=== PATIENT | male | born 1995 | race Asian ===

== ENCOUNTER 2025-04-20 12:47 | Outpatient (AMB) | payer OTHER, SELFPAY ==
--- NOTE | 2025-04-20 12:52 | A.OFFPC_ITS ---
Vital Signs 04/20/25 13:04 Height 5 ft 6 in Weight 142 lb BMI 22.9 BP 120/78 Blood Pressure Location Lt brachial Position Sitting Respiration 18 Pulse 91 Pulse Source Pulse Oximeter Temp 98 F Temp Source Oral Pulse Oximetry (%) 99 Oxygen Delivery Method Room Air Intake Visit Reasons: established care Intake Note: Patient here to [facility] and has been getting GERD Allergies No Known Allergies Allergy (Verified 04/20/25 13:04) Medication List - Last Reconciled 04/20/25 by Ravi Smith MD omeprazole 20 mg PO BID Tobacco use date assessed: 04/20/25 Dental Screening Dental Screen Date: 04/20/25 Did you have a dental visit in the last 12 months?: Yes Did you have a dental problem in the last 6 months where you did not have access to dental care?: No Was dental information given to patient?: Patient has dentist HPI HPI Comments History of Present Illness Details History of Present Illness The patient is a 29 year old male presenting to [facility] and for evaluation of gastroesophageal reflux disease. Gastroesophageal Reflux Disease: The patient reports a recent onset of gastroesophageal reflux disease (GERD) symptoms, which he believes were triggered by daily consumption of cold brew coffee. He has been self-treating with codd-vra-gynylat omeprazole 20 mg, which has provided some relief. He notes his symptoms, which previously included a burning sensation in his chest in the morning, have been slowly improving since he stopped drinking coffee, and he now only experiences symptoms after eating. Cerumen Impaction: The patient reports a history of seborrheic dermatitis, for which he previously used topical steroid creams. He denies any noticeable symptoms related to his ears but overproduction of cerumen is noted on exam. Health Maintenance: The patient has a history of vitamin D deficiency years ago, for which he took pills but was never rechecked. He reports feeling tired despite getting sleep. Surgical History: - No surgical history reported. Medications: - Omeprazole 20 mg hunm-fud-gcyuagj for GERD. Social History: - Substance Use: Denies smoking and illi cit drug use. - Nutritional Intake: Previously drank c old brew coffee daily but has stopped. Family History: - Mother: Has a history of supraventricu lar tachycardia (SVT) treated with an ablation, and Graves' disease. - Father: Has a history of cardiac issue s, diabetes, and was recently diagnosed with rectal cancer at age 61, for which he had surgery. - Sisters: One sister has multiple scler osis and another has rheumatoid arthritis. Past Medical History - Gastroesophageal reflux disease, recen t onset. - Vitamin D deficiency, history of, stat us post-treatment. - Seborrheic dermatitis, history of. - Hospitalizations: Denies prior hospita lizations. Health Maintenance - Ordered comprehensive baseline labs: C BC, CMP, HbA1c, hepatitis B virus, hepatitis C virus, HIV, lipid panel, magnesium, syphilis screen, TSH, UA, vitamin B12, folate, and vitamin D. - Plan to address any lab abnormalities upon review. - The patient does not need to schedule a follow-up appointment specifically for lab results. [facility] Medical History (Updated 04/20/25 @ 18:48 by Ravi Smith MD) Cerumen impaction GERD (gastroesophageal reflux disease) Vitamin D deficiency Surgical History (Updated 04/20/25 @ 13:06 by Levi Witt CMA) [place] teeth extracted Social History (Updated 04/20/25 @ 13:07 by Levi Witt CMA) Housing: Apartment Alcohol intake: never Patient Tobacco Use Status: Never used Tobacco e-Cigarette/Vaping Use: Never Used Second Hand Smoke Exposure: No Use of substances other than those prescribed or required for medical reasons: No service: No Current occupational status: employed Cognitive needs: No Hearing needs: No Vision needs: No Questionnaire PHQ-9 Over the last 2 weeks, how often have you been bothered by any of the following problems? 1. Little interest or pleasure in doing things: not at all 2. Feeling down, depressed, or hopeless: not at all 3. Trouble falling or staying asleep, or sleeping too much: not at all 4. Feeling tired or having little energy: not at all 5. Poor appetite or overeating: not at all 6. Feeling bad about yourself - or that you are a failure or have let yourself or your family down: not at all 7. Trouble concentrating on things, such as reading the newspaper or watching television: not at all 8. Moving or speaking so slowly that other people could have noticed. Or the opposite - being so fidgety or restless that you have been moving around a lot more than usual: not at all 9. Thoughts that you would be better off or of hurting yourself in some way: not at all Total score: 0 Depression Screening Interpretation: Negative Depression Screening Done: Yes 96945 - PHQ-9 Billing: Yes Source: Developed by Drs. Simone Phillips, Clara Elizabeth, Grant Michael and colleagues, with an educational joya from [employer]. Thrive Questionnaire Date Thrive assessed: 04/20/25 I am a: Patient What is your living situation today?: I have a steady place to live Within the past 12 months, did the food you bought not last and you didn't have the money to get more?: Never true Within the past 12 months, did you worry whether your food would run out before you got money to buy more?: Never true Do you have trouble paying for medicines?: No Do you have trouble getting transportation to medical appointments?: No Do you have trouble paying your heating and electricity bill?: No Do you have trouble taking care of your child, family member or friend?: No Do you have trouble with day-to-day activities such as bathing, preparing meals, shopping, managing finances, etc.?: No Are you currently unemployed and looking for a job?: No Are you interested in more education?: No Please select the resources that you would like help with: None Currently or been in a relationship where the following occur: No concerns reported THRIVE Score: 0 AUDIT C Alcohol Use Questionnaire (AUDIT-C) 1. How often do you have a drink containing alcohol?: Never Total Score: 0 CLAIRE-7 AMB Questionnaire CLAIRE-7 Date CLAIRE - 7 assessed: 04/20/25 Feeling nervous, anxious, or on edge: 0 = Not at all Not being able to stop or control worryin = Not at all Worrying too much about different things: 0 = Not at all Trouble relaxin = Not at all Being so restless that it is hard to sit still: 0 = Not at all Becoming easily annoyed or irritable: 0 = Not at all Feeling afraid as if something awful might happen: 0 = Not at all Total CLAIRE-7 score (0-4 normal; 5-9 mild; 10-14 moderate; 15-21 severe): 0 Source: Developed by Clara Wolf Glenn, Grant Michael and colleagues, with an educational joya from [employer]. CLAIRE-7 Assessment Billing CLAIRE-7 Assessment Tool: CLAIRE-7 Assessment 27620 Review of Systems Narrative Review of Systems - Constitutional: Reports fatigue and not feeling refreshed after sleep. - Gastrointestinal: Reports postprandial GERD symptoms; denies morning chest burning. - Allergies: Denies any known allergies. 10-point ROS reviewed and negative except as noted in HPI Physical exam (Primary Care) Vital Signs: Last Vital Signs Temp 98 F 04/20/25 13:04 Pulse 91 04/20/25 13:04 Resp 18 04/20/25 13:04 BP 120/78 04/20/25 13:04 Pulse Ox 99 04/20/25 13:04 Oxygen Delivery Method Room Air 04/20/25 13:04 BMI result Body Mass Index 22.9 Tobacco/Smoking Status: Tobacco use Status Tobacco use date assessed 04/20/25 04/20/25 13:11 Patient Tobacco Use Status Never used Tobacco 04/20/25 13:11 e-Cigarette/Vaping Use Never Used 04/20/25 13:11 PHQ-9: PHQ-9 Score PHQ-9: Total score 0 04/20/25 13:11 Depression Screening Interpretation: Negative Thrive Assessment: Date of Thrive Assessment Date Thrive assessed 04/20/25 04/20/25 13:11 Currently or been in a relationship where the following occur: No concerns reported Narrative Physical Exam General: Well-appearing, in no acute distress. Vital signs: Within normal limits. HEENT: Normocephalic, atraumatic. PERRLA, EOMI. Conjunctiva clear, sclera anicteric. Oropharynx clear, mucous membranes moist. TMs intact bilaterally. Neck: Supple, no lymphadenopathy, no thyromegaly, no JVD or carotid bruits. Cardiovascular: RRR, normal S1/S2, no murmurs, rubs, or gallops. Peripheral pulses 2+ and symmetric. No edema. Respiratory: Lungs clear to auscultation bilaterally, no wheezes, rales, or rhonchi. Normal effort. Abdomen: Soft, non-tender, non-distended. Normoactive bowel sounds. No hepatosplenomegaly, no masses. MSK: Full range of motion, no joint swelling or deformity. Normal gait. Skin: Warm, dry, intact. No rashes, lesions, or pallor. Dry skin noted on lower legs. Neuro: Alert and oriented x3. Cranial nerves II-XII intact. Strength 5/5 throughout. Sensation intact. Reflexes 2+ symmetric. Normal coordination and gait. Psych: Appropriate mood and affect. Normal judgment and insight. Coding Level of Care Code New Pt Level 4 (63113) Diagnoses GERD (gastroesophageal reflux disease) K21.9 Cerumen impaction H61.20 Additional Codes CLAIRE-7 Assessment Billing - CLAIRE-7 Assessment Tool: CLAIRE-7 Assessment 31121 ([id number]) PHQ-9 - 95030 - PHQ-9 Billing: Yes ([id number]) Assessment & Plan Assessment & Plan (1) GERD (gastroesophageal reflux disease): Code(s): K21.9 - Gastro-esophageal reflux disease without esophagitis Category: Medical (2) Cerumen impaction: Code(s): H61.20 - Impacted cerumen, unspecified ear Category: Medical Plan Consent Patient was informed and verbally consented to the use of an ambient scribe for clinic note documentation during this visit. Plan 1. Gastroesophageal Reflux Disease - A 3-month prescription for omeprazole was sent. - The patient was advised he can increase the dose to 40 mg by taking it twice daily (BID). - If omeprazole is not effective, he can switch to pantoprazole 20 mg twice daily, then taper to once daily as symptoms improve. - The patient can discontinue the medication once symptoms resolve. 2. Cerumen Impaction - The patient was prescribed Debrox drops and instructed to use five drops for about five days to soften the cerumen. - Advised to pull on the ear while showering to straighten the ear canal, allowing warm water to help break up and flush out the wax. - Follow-up will be arranged to check the ear and, if the impaction persists, perform an ear lavage. 3. Xerosis Cutis - The patient was advised to use lotion for dry skin on his lower legs. - Offered a prescription for lac hydrin . Discussion Notes I discussed with the patient his recent onset of GERD. I advised him that he could increase his current omeprazole dose to twice daily or switch to pantoprazole if symptoms do not improve, and that he can stop the medication once his symptoms are gone. I sent a 3-month prescription for omeprazole. We also discussed the cerumen impaction found on exam. I prescribed Debrox drops to be used for 5 days to soften the wax and instructed him on how to allow warm water to flush the ear canal in the shower. I explained that if this is not effective, we will perform an ear lavage in the office. For his dry skin, I recommended using lotion and offered a prescription for AmLactin. I informed him that I am ordering comprehensive baseline labs to get a complete picture of his health and will address any abnormalities that arise. I explained that a follow- up visit for the results is not necessary unless indicated. Patient Instructions - You can increase your omeprazole dose to 40 mg a day if your reflux symptoms continue. Take one 20 mg pill in the morning and one at night. - If omeprazole does not help, you can try pantoprazole 20 mg twice a day. As your symptoms get better, you can reduce this to once a day. - You may stop taking the reflux medication once your symptoms have completely gone away. - For the wax in your ear, use five drops of Debrox for about five days. This will help soften the wax. - When you shower, gently pull on your ear to straighten the ear canal so warm water can go in and help wash the wax out. - Use lotion for the dry skin on your lower legs. - We have ordered a full set of blood and urine tests to check your overall health. Medical Decision Making The patient is a 29-year-old male presenting to [facility], with a chief complaint of recent-onset gastroesophageal reflux disease (GERD). His GERD symptoms are improving with leco-tqy-thuqkbn omeprazole 20 mg and cessation of daily coffee intake. Given the improvement, the plan is to continue proton pump inhibitor therapy with options to increase the dose or switch to an alternative PPI if needed. The medication can be discontinued upon symptom resolution. A three-month supply was prescribed to ensure an adequate course of treatment. On physical exam, he was found to have cerumen impaction. Although he is asymptomatic, I recommended treatment with Debrox drops to soften the cerumen for easier removal, either at home with water or via in-office lavage if necessary, to prevent future symptoms or complications. Given the visit is to [facility] and the patient's significant family history of cardiac disease, diabetes, cancer, and autoimmune conditions (SVT, Graves' disease, multiple sclerosis, rheumatoid arthritis), a comprehensive baseline laboratory workup is warranted. This includes a CBC, CMP, HbA1c, lipid panel, TSH, vitamin levels (B12, Folate, D), and infectious disease screening to provide a comprehensive picture of his current health and screen for potential risks. Plan is to address any abnormalities found in the labs. Follow-up will be on an as-needed basis. Total Time Statement 30 min Total time spent caring for the patient today includes pre-visit chart review, documentation, review of laboratory and diagnostic imaging results, medication reconciliation, medically necessary evaluation, counseling on diagnoses, care coordination, ordering appropriate tests and medications, review of tests performed by other providers, reporting test results to the patient, and communication with other healthcare providers. Orders: Orders Hepatitis B Surface Antigen Today Z13.9 - Encounter for screening, unspecified Syphilis Screen Today Z13.9 - Encounter for screening, unspecified TSH reflex Free T4 Today Z13.9 - Encounter for screening, unspecified HIV Ab/Ag Today Z13.9 - Encounter for screening, unspecified UA CC w/rflx Micro + Cult Today Z13.9 - Encounter for screening, unspecified Vitamin B12 and Folate Today Z13.9 - Encounter for screening, unspecified Magnesium Today Z13.9 - Encounter for screening, unspecified Vitamin D 1,25 dihydroxy Today Z13.9 - Encounter for screening, unspecified Hepatitis B Surface Antibody Today Z13.9 - Encounter for screening, unspecified Complete Blood Count Auto Diff Today Z13.9 - Encounter for screening, unspecified Comprehensive Met. Panel Today Z13.9 - Encounter for screening, unspecified Hepatitis C Antibody Today Z13.9 - Encounter for screening, unspecified Lipid Panel Today Z13.9 - Encounter for screening, unspecified Hemoglobin A1c Today Z13.9 - Encounter for screening, unspecified Medications: New omeprazole 20 mg PO BID 180 caps 0RF omeprazole 20 mg PO BID 180 caps 0RF carbamide peroxide 6.5% (Debrox) 5 drps otic (ears) Q12H 15 mL 0RF 4 days
[2025-04-20 13:04] VITALS: BP 120/78; PULSE 91; RESP 18; TEMP 36.6; O2SAT 99; BMI 22.9
== END 2025-04-20 13:29 | disposition home or self-care (01) ==
LOC: HO.HMCFMS 12:47
PROVIDERS: Visit Provider Student in an Organized Health Care Education/Training Program
DX: K21.9 Gastro-esophageal reflux disease without esophagitis (principal); H61.20 Impacted cerumen, unspecified ear

== ENCOUNTER → 2025-04-20 12:47 | Outpatient (BNVA) | payer OTHER, SELFPAY | PROVIDERS: Visit Provider Student in an Organized Health Care Education/Training Program | DX: Z13.31 Encounter for screening for depression (principal); Z13.39 Encounter for screening examination for other mental health and behavioral disorders | CPT/HCPCS: 96127 ==

== ENCOUNTER 2025-04-21 08:28 | Outpatient (REF) | payer OTHER, SELFPAY ==
[2025-04-21 13:35] LABS: Appearance Urine Cloudy; Glucose Urine UA Negative (Negative); PH 6.5 (5.0-9.0); Specific Gravity - Urine 1.025 (1.005-1.025); UMIC TRIGGER UACC YES
[2025-04-21 13:40] LABS: MANUAL DIFF FLAG NO
[2025-04-21 14:04] LABS: Hematocrit 46.5 % (42.0-52.0); Hemoglobin 15.5 g/dl (14.0-18.0); Imm Gran Abs Auto 0.02 X10*3/uL (0.00-0.03); Imm Gran Pct Auto 0.3 % (0.0-0.4); Lymphocytes Absolute Auto 2.3 X10*3/uL (1.2-4.9); Mean Corpuscular HGB Conc 33.3 g/dl (31.0-36.0); Mean Corpuscular Hemoglobin 28.6 pg (27.0-33.0); Mean Corpuscular Volume 85.8 fL (80.0-98.0); NRBC Abs Auto 0.000 X10*3/uL (0.0-0.012); NRBC Pct Auto 0.0 /100WBC (0.0-0.2); Platelet Count 278 X10*3/uL (160-400); Red Blood Count 5.42 X10*6/uL (4.60-5.80); White Blood Count 6.1 X10*3/uL (4.8-10.8)
[2025-04-21 14:41] LABS: Alanine Aminotransferase 16 U/L (0-40); Albumin Level 4.8 g/dL (3.5-5.0); Alkaline Phosphatase 97 U/L (39-117); Anion Gap 9 (12-20); Aspartate Amino Transferase 29 U/L (5-37); Blood Urea Nitrogen 16 mg/dL (9-16); Calcium 9.7 mg/dL (8.4-10.2); Carbon Dioxide 29 mmol/L (22-29); Chloride 107 mmol/L (96-108); Cholesterol 232 mg/dL (<200); Estimated Glomerular Filt Rate > 60; HDL Cholesterol 44 mg/dL (>40); Magnesium 2.2 mg/dL (1.6-2.6); Potassium 4.4 mmol/L (3.3-5.1); Sodium 141 mmol/L (135-145); Total Protein 8.0 g/dL (6.5-8.0); Triglycerides 114 mg/dL (<150)
[2025-04-21 15:18] LABS: Folate 7.4 ng/mL (> or = 4.0); Vitamin B12 579 pg/mL (200-900)
[2025-04-22 06:00] LABS: HBsAGNum1 0.42 S/CO (0.00-0.99); HIV Num 1 0.06 S/CO (0.00-0.99); Hepatitis B Surface Antigen Negative (Negative); Syphilis Screen Nonreactive (Nonreactive); ~HepC Num1 0.12 S/CO (0.00-0.79); ~Hepatitis B Surface Antibody REACTIVE (Nonreactive); ~Hepatitis C Antibody Nonreactive (Nonreactive)
== END 2025-04-21 08:29 | disposition home or self-care (01) ==
LOC: HO.HKASLDS 08:28
PROVIDERS: PCP Student in an Organized Health Care Education/Training Program; Visit Provider Student in an Organized Health Care Education/Training Program
DX: Z11.4 Encounter for screening for human immunodeficiency virus [HIV] (principal); Z20.2 Contact with and (suspected) exposure to infections with a predominantly sexual mode of transmission; Z13.89 Encounter for screening for other disorder; Z13.6 Encounter for screening for cardiovascular disorders; Z13.29 Encounter for screening for other suspected endocrine disorder; Z13.21 Encounter for screening for nutritional disorder
CPT/HCPCS: 36415; 80053; 80061; 81001; 82607; 82652; 82746; 83036; 83735; 84443; 85025; 86706; 86780; 86803; 87340; 87389